=== PATIENT | male | born 1940 | race African-American/Black ===

== ENCOUNTER 2018-04-19 11:31 | Inpatient (IN) | payer OTHER ==
[~2018-04-19] VITALS: Ht 180.3 cm; Wt 59.4 kg
[2018-04-26] MEDS ORDERED: PERCOCET 5-3251 EACH PO (16:16)
== END 2018-04-26 17:21 | disposition home or self-care (01) | DRG 330 ==
LOC: SURH 04-23 07:00 → O/R 04-23 07:35 → SURH 04-23 09:34
PROVIDERS: ADMIT Surgery
PROC: 0DTP4ZZ Resection of Rectum, Percutaneous Endoscopic Approach (ICD-10-PCS; 2018-04-23)
PROC: 07TC4ZZ Resection of Pelvis Lymphatic, Percutaneous Endoscopic Approach (ICD-10-PCS; 2018-04-23)
PROC: 0D1B4Z4 Bypass Ileum to Cutaneous, Percutaneous Endoscopic Approach (ICD-10-PCS; 2018-04-23)
PROC: 0DTN4ZZ Resection of Sigmoid Colon, Percutaneous Endoscopic Approach (ICD-10-PCS; principal; 2018-04-23 07:00)
DX: C20 Malignant neoplasm of rectum (principal); C77.8 Secondary and unspecified malignant neoplasm of lymph nodes of multiple regions; R59.0 Localized enlarged lymph nodes; Z92.21 Personal history of antineoplastic chemotherapy